=== PATIENT | female | born 1985 | race Caucasian/White ===

== ENCOUNTER → 2016-10-21 | Outpatient (CLI) | payer BC ==
[~2016-10-21] MED LIST: BCPILLS PO; PREN-83; SULF800T23 PO
[2016-10-29 03:24] LABS: CHLAMYDIA TRACH RNA*** NOT DETECTED (NOT DETECTED); GC (NEIS GONORRHOEAE)RNA** NOT DETECTED (NOT DETECTED)
== END | disposition home or self-care (01) ==
LOC: C.LABSPEC 15:18
PROVIDERS: ATTEND Obstetrics & Gynecology
DX: Z34.81 Encounter for supervision of other normal pregnancy, first trimester (principal)

== ENCOUNTER → 2017-01-12 | Outpatient (CLI) | payer BC, OTHER ==
[2017-01-12 10:33] LABS: BASO % 0.3 %; BASO ABS # 0.02 K/uL (0-0.2); COMPLETE YES; EOS % 0.9 %; HEMATOCRIT 36.3 % (37-47); IG% 0.4 %; LYMPH % 31.1 %; MEAN CELL VOLUME 86.6 fL (80-100); MEAN CORPUSCULAR HEMOGLOBIN 29.4 pg (25-34); MEAN CORPUSCULAR HGB CONC 33.9 g/dl (32-36); MEAN PLATELET VOLUME 10.1 fL (7.4-10.4); MONO % 3.2 %; NEUT % 64.1 %; PLATELET COUNT 216 K/uL (130-400); RED BLOOD COUNT 4.19 M/uL (4.2-5.4); WHITE BLOOD COUNT 7.72 K/uL (4.8-10.8)
[2017-01-12 15:21] LABS: GTGD 50 Grams
[2017-01-14 13:20] LABS: AFP CONCENTRATION 50.9 NG/ML; AFP MULTIPLE OF MEDIAN 1.37; AFPTS GESTATIONAL AGE 18.4 WEEKS; AFPTS INSULIN DEP DIABETIC? NO; AFPTS MATERNAL WT 203 LBS; ALPHA-FETOPROTEIN RACE CAUCASIAN=W; EDD DETERMINED BY ULTRASOUND; ESTRIOL MULTIPLE OF MEDIAN 0.79; HISTORY OF NTD NO; INHIBIN A 108 PG/ML; INHIBIN A MOM 0.74; REPEAT SAMPLE? NO
== END | disposition home or self-care (01) ==
LOC: C.LAB 08:58
PROVIDERS: ATTEND Obstetrics & Gynecology
DX: Z34.81 Encounter for supervision of other normal pregnancy, first trimester (principal)

== ENCOUNTER → 2017-05-12 | Outpatient (CLI) | payer BC, OTHER | END | disposition home or self-care (01) | LOC: C.LABSPEC 14:33 | PROVIDERS: ATTEND Obstetrics & Gynecology | DX: Z34.83 Encounter for supervision of other normal pregnancy, third trimester (principal) ==

== ENCOUNTER 2017-06-11 21:43 | Inpatient (IN) | payer BC ==
[~2017-06-11] VITALS: Ht 160 cm; Wt 97.7 kg
[~2017-06-11 21:43] MED LIST changes: -PREN-83
[2017-06-11] MEDS ORDERED: LACTATED RINGER'S 1000ML 1,000 ML IV PRN (22:22)
[2017-06-11] MEDS ORDERED: LACTATED RINGER'S 1000ML 1,000 ML IV SCH (22:22)
[2017-06-11] MEDS ORDERED: FENTANYL CITRATE INJ 50 MCG/1 ML 2 ML VIAL ONE (22:34)
[2017-06-11] MEDS ORDERED: BUPIVACAINE 0.25% 30 ML VIAL ONE (22:34)
[2017-06-11] MEDS ORDERED: EpHEDrine SULFATE INJ 50 MG/ML AMP ONE (22:34)
[2017-06-11] MEDS ORDERED: FENTANYL 2MCG/ML ROPIV 1.25MG/ML 100ML BAG EPI ONE (22:34)
[2017-06-11 22:56] VITALS: Ht 160 cm; Wt 97.7 kg
[2017-06-11] MEDS ORDERED: PREN-83 (22:56)
[2017-06-11 23:06] LABS: HEMATOCRIT 33.9 % (37-47); MEAN CELL VOLUME 84.3 fL (80-100); MEAN CORPUSCULAR HEMOGLOBIN 29.4 pg (25-34); MEAN CORPUSCULAR HGB CONC 34.8 g/dl (32-36); MEAN PLATELET VOLUME 10.7 fL (7.4-10.4); PLATELET COUNT 184 K/uL (130-400); RED BLOOD COUNT 4.02 M/uL (4.2-5.4); WHITE BLOOD COUNT 12.69 K/uL (4.8-10.8)
[2017-06-11] MEDS ORDERED: LACTATED RINGER'S 1000ML 500 ML IV PRN (23:26)
[2017-06-11] MEDS ORDERED: NALOXONE HCL INJ 0.4 MG/1 ML VIAL/CARP IV PRN (23:30)
[2017-06-11] MEDS ORDERED: FENTANYL 2MCG/ML ROPIV 1.25MG/ML 100ML BAG EPI PRN (23:30)
[2017-06-11] MEDS ORDERED: EpHEDrine SULFATE INJ 50 MG/ML AMP IV PRN (23:30)
[2017-06-11] MEDS ORDERED: MoRPHine SULFATE PF 1 MG/ML 10 ML AMP/VIAL ONE (23:57)
[2017-06-12] VITALS (18 sets, daily range): BP systolic 108–131; BP diastolic 61–83; PULSE 74–93; TEMP 36.7–37.2; O2SAT 96–100
[2017-06-12] MEDS ORDERED: CITRIC ACID/SODIUM CITRATE 15 ML UDC PO ONE
[2017-06-12] MEDS ORDERED: CEFOXITIN IV 2,000 MG in DEXTROSE 5% 50ML 50 ML IV STA ×2
[2017-06-12] MEDS ORDERED: LIDOCAINE/EPINEPHRINE 2% 1:200,000 20 ML SDV ONE (00:01)
[2017-06-12] MEDS ORDERED: OXYTOCIN INJ 10 UNITS/ML VIAL ONE ×2 (00:01→00:43)
[2017-06-12] MEDS ORDERED: METHYLERGONOVINE MALEATE 0.2 MG/ML AMP ONE (00:02)
[2017-06-12] MEDS ORDERED: PHENYLEPHRINE 100MCG/ML 5ML SYR ONE (00:43)
[2017-06-12] MEDS ORDERED: EpHEDrine SULFATE 50MG/5ML SYR ONE (00:43)
[2017-06-12] MEDS ORDERED: ONDANSETRON INJ 2 MG/ML 2 ML VIAL ONE (00:43)
[2017-06-12] MEDS ORDERED: LIDOCAINE HCL 2% 2 ML VIAL (20MG/ML) ONE (00:43)
[2017-06-12] MEDS ORDERED: PROPOFOL IV EMULSION 10 MG/ML 20 ML VIAL IV ONE (00:43)
[2017-06-12] MEDS ORDERED: METOCLOPRAMIDE HCL INJ 5 MG/ML 2 ML VIAL ONE (00:43)
[2017-06-12] MEDS ORDERED: SENNA 8.6 MG TAB PO PRN (01:30)
[2017-06-12] MEDS ORDERED: LANOLIN OINT EXT PRN ×2 (01:30)
[2017-06-12] MEDS ORDERED: MAGNESIUM HYDROXIDE SUSP 30 ML UDC PO PRN (01:30)
[2017-06-12] MEDS ORDERED: BENZOCAINE 20% AER SPR 82.5 GM CAN EXT PRN (01:30)
[2017-06-12] MEDS ORDERED: HYDROCORTISONE ACETATE 25 MG SUPP PR PRN (01:30)
[2017-06-12] MEDS ORDERED: SUPERCREAM 0.870 % 15GM JAR EXT PRN (01:30)
[2017-06-12] MEDS ORDERED: LACTATED RINGER'S 1000ML 500 ML IV PRN (01:32)
[2017-06-12] MEDS ORDERED: NALOXONE HCL INJ 0.08 MG in SYRINGE 1.8 ML IV PRN (01:32)
[2017-06-12] MEDS ORDERED: SODIUM CHLORIDE 0.9% 1000ML 1,000 ML IV PRN (01:32)
[2017-06-12] MEDS ORDERED: NALOXONE HCL INJ 1 MG in SODIUM CHLORIDE 0.9% 1000ML 1,000 ML IV PRN ×4 (01:32)
[2017-06-12] MEDS ORDERED: MEPERIDINE HCL 25 MG/ML CARP IV PRN ×2 (01:45)
[2017-06-12] MEDS ORDERED: KETOROLAC TROMETHAMINE 30 MG/ML VIAL IV. PRN ×2 (01:45→17:00)
[2017-06-12] MEDS ORDERED: EpHEDrine SULFATE INJ 50 MG/ML AMP IV PRN ×2 (01:45)
[2017-06-12] MEDS ORDERED: MoRPHine SULFATE PF 1 MG/ML 10 ML AMP/VIAL EPI PRN (01:45)
[2017-06-12] MEDS ORDERED: NO NARCOTICS OR SEDATIVES SCH (01:45)
[2017-06-12] MEDS ORDERED: PHENYLEPHRINE 100MCG/ML 5ML SYR IV PRN (01:45)
[2017-06-12] MEDS ORDERED: ATROPINE SULFATE 0.1 MG/ML 5ML SYR IV PRN (01:45)
[2017-06-12] MEDS ORDERED: PROMETHAZINE HCL INJ 12.5 MG in SODIUM CHLORIDE 0.9% 50ML 50 ML IV PRN ×4 (01:45)
[2017-06-12] MEDS ORDERED: NALBUPHINE HCL INJ 10 MG/ML AMP IV PRN (01:45)
[2017-06-12] MEDS ORDERED: ONDANSETRON INJ 2 MG/ML 2 ML VIAL IV PRN ×3 (01:45→17:00)
[2017-06-12] MEDS ORDERED: NALOXONE HCL 0.4 MG/1 ML VIAL/CARP IV PRN (01:45)
[2017-06-12] MEDS: OXYTOCIN INJ 20 UNITS in LACTATED RINGER'S 1000ML 1,000 ML IV SCH ×3 (03:03→19:37)
[2017-06-12] MEDS: KETOROLAC TROMETHAMINE 30 MG/ML VIAL IV. PRN ×2 (03:57→11:24)
--- NOTE | 2017-06-12 04:10 | Anesthesiology Progress Note ---
Anesthesia Post Op Note Date & Time Jun 12, 2017 at 04:10 Notes Mental Status: alert / awake / arousable, participated in evaluation Pt Amnestic to Procedure: Yes Nausea / Vomiting: adequately controlled Pain: adequately controlled Airway Patency, RR, SpO2: stable & adequate BP & HR: stable & adequate Hydration State: stable & adequate Anesthetic Complications: no major complications apparent
--- NOTE | 2017-06-12 04:10 | HISTORY & PHYSICAL EXAMINATION ---
DATE OF ADMISSION: 06/11/2017 CHIEF COMPLAINT: Intrauterine at term, non-reassuring heart rate tracing. HISTORY OF PRESENT ILLNESS: The patient is a 31-year-old 2, para 1, due date is 06/12/2017. She has had an uneventful course. Her first resulted in a live male , vaginal delivery. She was admitted in active labor about 4 cm dilated, 100% effaced. Soon after admission, she received epidural anesthesia from which she obtained good pain relief. Then she began to have a non-reassuring heart rate tracing. She had recurrent type 2 decelerations, after contraction and at the time she was having these contractions, she was about 5 cm with the head at -1 station. She had these recurrent type 2 decelerations despite having no stimulation of her contractions and having mask oxygen. Emergency was called. PAST MEDICAL HISTORY: She has a boy in good health. ALLERGIES: No known drug allergies. PAST SURGICAL HISTORY: [place] teeth removed. SOCIAL HISTORY: No smoking. No alcohol intake. 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 FAMILY HISTORY: Mom is 51 in good health. Father 55 in good health, 1 brother and 2 sisters in good health. REVIEW OF SYSTEMS: HEAD: No symptoms of frequent or severe headaches. EYES: No symptoms of blurred vision, double vision. EARS: No symptoms of frequent ear infection, difficulty hearing. NOSE: No symptoms of frequent nosebleeds, difficulty breathing through her nose. THROAT: No symptoms of frequent or severe sore throat, difficulty swallowing. RESPIRATORY: No history of asthma, chest pain, shortness of breath. PHYSICAL EXAMINATION: GENERAL: A well-developed, well-nourished, 31-year-old white female, alert, oriented x3, in no acute distress. HEART: Regular rhythm. S1 and S2 are normal. LUNGS: Clear to auscultation and percussion. ABDOMEN: Soft and contractions were palpable about every 2-3 minutes. They were of good intensity and good duration. PELVIC: Reveals cervix to be 98% effaced, head to be -1 station, about 5 cm dilated. MUSCULOSKELETAL: Revealed no calf tenderness. IMPRESSIONS OF THIS CASE: Intrauterine at term, and non-reassuring heart rate tracing with recurrent type 2 decelerations. Thank you very much. FRED
--- NOTE | 2017-06-12 05:28 | OPERATIVE REPORT ---
DATE OF OPERATION: 06/12/2017 PROCEDURE: Primary low segment section. INDICATIONS FOR SURGERY: Recurrent type 2 decelerations, non-reassuring heart rate tracing. PREOPERATIVE DIAGNOSIS: Non-reassuring heart rate tracing. POSTOPERATIVE DIAGNOSIS: Same, occiput posterior position. SURGEON: Dr. Byers. ORGANIZATIONAL DEVELOPMENT SPECIALIST: Dr. Santos. ESTIMATED BLOOD LOSS: 700 mL ANESTHESIA: Epidural. OPERATIVE FINDINGS AND PROCEDURE: The patient was brought to the OR table, correctly identified by armband and conversation. Epidural anesthesia was topped off. She was given mask oxygen. Lower abdomen was painted with an alcohol based sterilizing solution, draped in usual sterile fashion. Pfannenstiel incision was made, and carried down to the anterior fascia by a sharp dissection. Hemostasis was secured by electrocauterization. Fascia was incised transversely from the underlying muscle by blunt and sharp dissection. Recti muscles were in the midline, exposing the peritoneum which was carefully raised and entered. Incision was made above the vesicouterine fold. Bladder was undermined bluntly and pushed out of the operative field. Lower uterine segment was scored over the infant's head then entered with the scissors. Incision was then extended laterally with 2 fingers. At this time, there was virtually no amniotic fluid noted. A Vectis retractor was applied to the head and with fundal pressure, the infant was delivered. Cord was clamped and cut. A piece of cord was sent for cord gases. Cord blood was taken and the was attended to by the tongue and groove machine feeder who was scrubbed and present at the time of delivery. Following this, the placenta was removed manually. Uterus was cleansed with a clean sponge. Uterus, tubes, and ovaries were brought out through the incision. The myometrium was approximated with continuous interlocking suture of heavy duty chromic. The fascia was approximated over this with a continuous interlocking suture of heavy Vicryl placed in a horizontal fashion and then several interrupted [id number] sutures of Vicryl was used to complete the approximation and finish the hemostasis. Following this, hemostasis was good. The peritoneal edges were restored with a running 3-0 chromic. The pelvis was cleansed of all blood clots and debris. Uterus, tubes, and ovaries were reinserted into the abdomen. Careful anatomical approximation was now performed of the anterior abdominal wall. The peritoneum was closed with a continuous chromic gut suture. Recti muscles were approximated with interrupted [id number] suture of chromic catgut. The fascia was closed with continuous interlocking suture of Vicryl on each side, tied in the midline. Subcu was approximated with continuous plain and skin edges were approximated with staple clips. I attest to the content of the Intraoperative Record and any orders documented therein. Any exception s are noted below.
[2017-06-12] MEDS: DiphenhydrAMINE HCL 50 MG/ML VIAL IV PRN ×2 (05:51→14:59)
[2017-06-12] MEDS ORDERED: CEFOXITIN IV 2,000 MG in DEXTROSE 5% 50ML 50 ML IV SCH (06:00)
[2017-06-12] MEDS: PRENATAL VITAMIN TAB PO SCH (08:49)
[2017-06-12] MEDS: DOCUSATE SODIUM 100 MG CAP PO SCH ×2 (08:49→19:37)
[2017-06-12] MEDS: SIMETHICONE 80 MG CHEW PO SCH ×4 (08:49→19:37)
[2017-06-12] MEDS: FERROUS SULFATE 325 MG TAB PO SCH (08:49)
[2017-06-12] MEDS ORDERED: DC INTRASPINAL MORPHINE ONE (17:00)
[2017-06-12] MEDS ORDERED: MEPERIDINE HCL 50 MG/ML CARP IV PRN ×2 (17:00)
[2017-06-12] MEDS ORDERED: DiphenhydrAMINE HCL 50 MG/ML VIAL IV PRN (17:00)
[2017-06-12] MEDS ORDERED: OXYCODONE/ACETAMINOPHEN 5-325 TAB PO PRN (17:00)
[2017-06-12] MEDS ORDERED: ZOLPIDEM TARTRATE 5 MG TAB PO PRN (17:00)
[2017-06-12] MEDS: IBUPROFEN 600 MG TAB PO PRN (19:38)
[2017-06-12] MEDS: OXYCODONE/ACETAMINOPHEN 5-325 TAB PO PRN (19:39)
[2017-06-12] MEDS ORDERED: BISACODYL 5 MG TABEC PO ONE (22:00)
[2017-06-13] MEDS: OXYCODONE/ACETAMINOPHEN 5-325 TAB PO PRN ×5 (00:58→20:01)
[2017-06-13] MEDS: IBUPROFEN 600 MG TAB PO PRN ×5 (00:58→20:01)
[2017-06-13] MEDS ORDERED: BISACODYL 10 MG SUPP PR PRN (01:30)
[2017-06-13 07:29] LABS: BASO % 0.2 %; BASO ABS # 0.02 K/uL (0-0.2); COMPLETE YES; EOS % 1.2 %; HEMATOCRIT 31.7 % (37-47); IG% 0.3 %; LYMPH ABS # 1.91 K/uL (1.2-3.4); MEAN CELL VOLUME 87.1 fL (80-100); MEAN CORPUSCULAR HEMOGLOBIN 29.7 pg (25-34); MEAN CORPUSCULAR HGB CONC 34.1 g/dl (32-36); MEAN PLATELET VOLUME 10.9 fL (7.4-10.4); MONO % 5.1 %; NEUT % 77.2 %; PLATELET COUNT 163 K/uL (130-400); RED BLOOD COUNT 3.64 M/uL (4.2-5.4); WHITE BLOOD COUNT 11.92 K/uL (4.8-10.8)
[2017-06-13] MEDS: PRENATAL VITAMIN TAB PO SCH (08:39)
[2017-06-13] MEDS: SIMETHICONE 80 MG CHEW PO SCH ×4 (08:39→20:00)
[2017-06-13] MEDS: DOCUSATE SODIUM 100 MG CAP PO SCH ×2 (08:39→20:00)
[2017-06-13] MEDS: FERROUS SULFATE 325 MG TAB PO SCH (08:40)
[2017-06-13 08:45] VITALS: BP 132/78; PULSE 92; TEMP 36.7
[2017-06-13] MEDS ORDERED: DIPHTHERIA/TETANUS/PERTUSSIS 0.5 ML SYR/VIAL IM. ONE (09:00)
--- NOTE | 2017-06-13 13:25 | Progress Note ---
Subjective Jun 13, 2017. Subjective conversation w/ patient Ambulation: ambulating normally Voiding: no voiding problems Passing Gas: Yes Diet Tolerance: Regular Diet Lochia: Small Review of Systems Constitutional: + fever Objective Vital Signs Date Time Temp Pulse Resp B/P (MAP) Pulse Ox O2 Delivery O2 Flow Rate FiO2 06/13/17 08:45 36.7 92 16 132/78 (96) 06/12/17 23:15 Room Air 06/12/17 23:15 36.7 74 18 108/76 (87) 97 Room Air 06/12/17 20:10 37.2 92 18 123/78 (93) 96 Room Air 06/12/17 17:00 20 97 06/12/17 16:40 97 Room Air 06/12/17 16:00 18 97 06/12/17 16:00 36.8 77 16 110/73 (85) 100 Room Air 06/12/17 15:00 18 97 06/12/17 14:00 16 97 Physical Exam General Appearance: WELL-APPEARING Abdomen: normal bowel sounds, non tender Fundus: Firm, Non-Tender Incision Description: Clean, Dry & Intact Extremities: no pedal edema, no calf tenderness Laboratory Results Last 24 Hours Test 06/13/17 06:50 White Blood Count 11.92 K/uL Red Blood Count 3.64 M/uL Hemoglobin 10.8 g/dL Hematocrit 31.7 % Mean Corpuscular Volume 87.1 fL Mean Corpuscular Hemoglobin 29.7 pg Mean Corpuscular Hemoglobin Concent 34.1 g/dl Platelet Count 163 K/uL Mean Platelet Volume 10.9 fL Neutrophils (%) (Auto) 77.2 % Lymphocytes (%) (Auto) 16.0 % Monocytes (%) (Auto) 5.1 % Eosinophils (%) (Auto) 1.2 % Basophils (%) (Auto) 0.2 % Neutrophils # (Auto) 9.20 K/uL Lymphocytes # (Auto) 1.91 K/uL Monocytes # (Auto) 0.61 K/uL Eosinophils # (Auto) 0.14 K/uL Basophils # (Auto) 0.02 K/uL RDW Standard Deviation 44.3 fL RDW Coefficient of Variation 14.0 % Immature Granulocyte % (Auto) 0.3 % Immature Granulocyte # (Auto) 0.04 K/uL Assessment and Plan Post-Op Day#: 1 Continue Routine Care: incision clean and dry
[2017-06-13 16:49] VITALS: BP 136/85; PULSE 77; TEMP 36.7
[2017-06-14] VITALS: BP 120/78; PULSE 84; TEMP 36.7
[2017-06-14] MEDS: IBUPROFEN 600 MG TAB PO PRN ×5 (05:18→23:45)
[2017-06-14 08:45] VITALS: BP 131/83; PULSE 73; TEMP 36.5
[2017-06-14] MEDS: SIMETHICONE 80 MG CHEW PO SCH ×4 (08:58→19:30)
[2017-06-14] MEDS: FERROUS SULFATE 325 MG TAB PO SCH (08:59)
[2017-06-14] MEDS: PRENATAL VITAMIN TAB PO SCH (08:59)
[2017-06-14] MEDS: DOCUSATE SODIUM 100 MG CAP PO SCH ×2 (08:59→19:30)
--- NOTE | 2017-06-14 09:07 | Progress Note ---
Subjective Jun 14, 2017. Subjective conversation w/ patient Ambulation: ambulating normally Voiding: no voiding problems Passing Gas: Yes Diet Tolerance: Regular Diet Lochia: Small Feeding Type: Breast Feeding Review of Systems Constitutional: + fever Objective Vital Signs Date Time Temp Pulse Resp B/P (MAP) Pulse Ox O2 Delivery O2 Flow Rate FiO2 06/14/17 00:00 36.7 84 18 120/78 (92) Room Air 06/14/17 00:00 Room Air 06/13/17 16:49 36.7 77 20 136/85 (102) Physical Exam General Appearance: WELL-APPEARING Respiratory/Chest: lungs clear Abdomen: non tender Fundus: Firm, Non-Tender Extremities: no pedal edema, no calf tenderness Assessment and Plan Post-Op Day#: 2
[2017-06-14] MEDS: OXYCODONE/ACETAMINOPHEN 5-325 TAB PO PRN ×4 (11:58→23:45)
[2017-06-14 15:15] VITALS: BP 129/82; PULSE 72; TEMP 36.8; O2SAT 98
[2017-06-14 23:35] VITALS: BP 113/72; PULSE 69; TEMP 36.6; O2SAT 98
[2017-06-15] MEDS: IBUPROFEN 600 MG TAB PO PRN ×2 (04:14→08:15)
[2017-06-15] MEDS: OXYCODONE/ACETAMINOPHEN 5-325 TAB PO PRN ×2 (04:14→08:15)
[2017-06-15 07:30] VITALS: BP 123/71; PULSE 82; TEMP 36.6; O2SAT 98
[2017-06-15] MEDS: FERROUS SULFATE 325 MG TAB PO SCH (08:14)
[2017-06-15] MEDS: DOCUSATE SODIUM 100 MG CAP PO SCH (08:14)
[2017-06-15] MEDS: PRENATAL VITAMIN TAB PO SCH (08:14)
[2017-06-15] MEDS: SIMETHICONE 80 MG CHEW PO SCH (08:14)
--- NOTE | 2017-06-15 09:11 | Progress Note ---
Subjective Jun 15, 2017. Subjective conversation w/ patient Ambulation: ambulating normally Voiding: no voiding problems Passing Gas: Yes Diet Tolerance: Regular Diet Lochia: Small Feeding Type: Breast Feeding Review of Systems Constitutional: + fever Objective Vital Signs Date Time Temp Pulse Resp B/P (MAP) Pulse Ox O2 Delivery O2 Flow Rate FiO2 06/15/17 07:30 36.6 82 18 123/71 (88) 98 Room Air 06/15/17 07:30 Room Air 06/14/17 23:35 36.6 69 16 113/72 (86) 98 Room Air 06/14/17 23:35 Room Air 06/14/17 15:15 98 Room Air 06/14/17 15:15 36.8 72 16 129/82 (98) 98 Room Air Physical Exam General Appearance: WELL-APPEARING Abdomen: non tender Fundus: Firm, Non-Tender Incision Description: Clean, Dry & Intact Extremities: no pedal edema, no calf tenderness Assessment and Plan Post-Op Day#: 3
--- NOTE | 2017-06-15 09:13 | Discharge Instructions ---
Discharge Instructions Date of Service Jun 15, 2017. Admission Reason for Admission: Active Labor Discharge Discharge Diagnosis / Problem: cesareansection for non reassuring heart rate Discharge Goals Goal(s): Routine recovery after Activity Recommendations Activity Limitations: as noted below ACTIVITY RECOMMENDATIONS: * Gradual return to full activity over the next 2-3 weeks. * No lifting - nothing heavier than baby over the next 2-3 weeks. * Do not engage in vigorous exercise, sexual activity or sports for 6 weeks. * Do not drive or operate any motorized equipment for 14 days. * You may shower/bathe daily. DIET: Resume Previous Diet If Breast-feeding: * Increase caloric intake by 500 calories, eat 3 well balanced meals, 2 high protein snacks a day and drink 6-8 8oz. glasses of fluid per day. BREAST CARE: If you are not breast feeding: * Wear a supportive bra 24 hours a day for one to two weeks. * Avoid stimulating your breasts and nipples as much as possible during the first few weeks after delivery. * When taking a shower, have the warm water hit your back, not breasts. * When your breasts feel full, apply ice packs. Usually three to four times a day helps ease the discomfort. * Take a mild pain medication (Tylenol / Motrin) when you are uncomfortable. If breast feeding: * Use breast milk to lubricate nipples. Lansinoh cream may be used for sore nipples. You do not need to remove cream prior to breast feeding. If using a different brand of cream, check the label for directions regarding removal of cream prior to nursing. * Wear a supportive bra. * If having problems with breasts or breast feeding, call a help desk consultant or your health care provider. VITAMINS: * One tablet daily. Continue taking while or until you have your check up in 6 weeks. SPECIAL CARE INSTRUCTIONS: * Vaginal rest (no tampons, douching, intercourse) until after doctor's visit. * control as discussed with doctor. * Verbalizes understanding of car seat law as reviewed with patient by nursing. * Car Seat hand-out given and reviewed with patient by nursing. * Shaken baby information reviewed with patient by nursing. Call you doctor if: * Heavy bleeding (saturating a pad an hour) or passing clots the size of your fist. Bleeding has a foul smelling odor. * A fever greater than 100.4 degrees F (38 degrees C) on two occasions four hours apart and/or chills. * Unusual pain in the pelvic or vaginal areas. Pain should improve each day . * Call the doctor for any increased redness, drainage or swelling around the incision and any pain unrelieved by prescribed pain medication. * Signs and symptoms of phlebitis(possible blood clots forming in the veins): leg pain, warm, red or swollen area on leg. * "Baby Blues" lasting longer than two weeks. If you have any questions or concerns, call your health care practitioner at [phone]. FOLLOW-UP VISIT: Follow-up visit for examination in 6 weeks. Incision check (staple removal) in 1 week. Please call office at [phone] if not already scheduled. . Instructions / Follow-Up Instructions / Follow-Up ACTIVITY RECOMMENDATIONS: * Gradual return to full activity over the next 2-3 weeks. * No lifting - nothing heavier than baby over the next 2-3 weeks. * Do not engage in vigorous exercise, sexual activity or sports for 6 weeks. * Do not drive or operate any motorized equipment for 14 days. * You may shower/bathe daily. DIET: Resume Previous Diet If Breast-feeding: * Increase caloric intake by 500 calories, eat 3 well balanced meals, 2 high protein snacks a day and drink 6-8 8oz. glasses of fluid per day. BREAST CARE: If you are not breast feeding: * Wear a supportive bra 24 hours a day for one to two weeks. * Avoid stimulating your breasts and nipples as much as possible during the first few weeks after delivery. * When taking a shower, have the warm water hit your back, not breasts. * When your breasts feel full, apply ice packs. Usually three to four times a day helps ease the discomfort. * Take a mild pain medication (Tylenol / Motrin) when you are uncomfortable. If breast feeding: * Use breast milk to lubricate nipples. Lansinoh cream may be used for sore nipples. You do not need to remove cream prior to breast feeding. If using a different brand of cream, check the label for directions regarding removal of cream prior to nursing. * Wear a supportive bra. * If having problems with breasts or breast feeding, call a help desk consultant or your health care provider. VITAMINS: * One tablet daily. Continue taking while or until you have your check up in 6 weeks. SPECIAL CARE INSTRUCTIONS: * Vaginal rest (no tampons, douching, intercourse) until after doctor's visit. * control as discussed with doctor. * Verbalizes understanding of car seat law as reviewed with patient by nursing. * Car Seat hand-out given and reviewed with patient by nursing. * Shaken baby information reviewed with patient by nursing. Call you doctor if: * Heavy bleeding (saturating a pad an hour) or passing clots the size of your fist. Bleeding has a foul smelling odor. * A fever greater than 100.4 degrees F (38 degrees C) on two occasions four hours apart and/or chills. * Unusual pain in the pelvic or vaginal areas. Pain should improve each day . * Call the doctor for any increased redness, drainage or swelling around the incision and any pain unrelieved by prescribed pain medication. * Signs and symptoms of phlebitis(possible blood clots forming in the veins): leg pain, warm, red or swollen area on leg. * "Baby Blues" lasting longer than two weeks. If you have any questions or concerns, call your health care practitioner at [phone]. FOLLOW-UP VISIT: Follow-up visit for examination in 6 weeks. Incision check (staple removal) in 1 week. Please call office at [phone] if not already scheduled. Current Hospital Diet Patient's current hospital diet: Regular OB Diet Discharge Diet Recommended Diet: Regular Diet Procedures Procedures Performed: Primary caesarean section Live male child at 0031 Pending Studies Studies pending at discharge: no Medical Emergencies . Who to Call and When: Medical Emergencies: If at any time you feel your situation is an emergency, please call 911 immediately. . Non-Emergent Contact Non-Emergency issues call your: Embedded Systems Engineer Call Non-Emergent contact if: temperature is above 100.5 . . "Provider Documentation" section prepared by Carlos Byers. . VTE Core Measure Inpt VTE Proph given/why not?: Treatment not indicated
--- NOTE | 2017-06-15 09:25 | DISCHARGE SUMMARY ---
Mrs. Stallworth was admitted to the hospital in active labor after she got to be about 5 cm dilated. She requested and received epidural anesthesia. Initially, she did well. Then we began to have trouble with heart rate tracing and she had some prolonged decelerations followed by recurrent decelerations after each and every contraction and this was despite the fact that labor was not stimulated and she was receiving mask oxygen. We subsequently scheduled her for a stat for nonreassuring heart rate tracing. Right before brought her in to the OR, which we had to use the main OR, heart rate did improve; however, this was because the contractions had spaced out from her every 2-3 minutes for about every 10. She was taken to the OR and underwent a primary low segment section, did well. Blood loss was minimal. Her preoperative hemoglobin was 11.8, hematocrit 33.9. Postoperatively hemoglobin was 10.8, hematocrit 31.7. Postoperatively, she did well. Bowel sounds returned within 24 hours. She remained afebrile. On the third postoperative day, she was ambulating well, eating well. The patient requested discharge. Pain was well controlled with a combination of Percocet and Motrin. The patient was given the usual instructions to call the office if she had a temperature over 100, call if she had any heavy bleeding and to return in a week for removal of hu.
[2017-06-15 10:30] VITALS: BP_DIAS 71; PULSE 82; TEMP 36.6
== END 2017-06-15 10:34 | disposition home or self-care (01) | DRG 766 ==
LOC: C.OPB 21:43 → C.LD 21:45 → C.OPB 22:26 → C.OBG 06-12 03:48 → EDSTATUS 06-12 21:43
PROVIDERS: ADMIT Obstetrics & Gynecology; ATTEND Obstetrics & Gynecology
PROC: 10D00Z1 Extraction of Products of Conception, Low, Open Approach (ICD-10-PCS; principal; 2017-06-12 00:06)
PROC: 10E0XZZ Delivery of Products of Conception, External Approach (ICD-10-PCS; principal; 2017-06-12 00:06)
DX: O76 Abnormality in fetal heart rate and rhythm complicating labor and delivery (principal); Z37.0 Single live birth

== ENCOUNTER → 2017-07-23 | Outpatient (CLI) | payer BC ==
[~2017-07-23] MED LIST changes: -BCPILLS PO; +PREN-83; -SULF800T23 PO
== END | disposition home or self-care (01) ==
LOC: C.PAPS 16:01
PROVIDERS: ATTEND Obstetrics & Gynecology
DX: Z39.2 Encounter for routine postpartum follow-up (principal)

== ENCOUNTER 2019-02-02 05:40 | Inpatient (IN) ==
--- NOTE | 2019-01-28 11:56 | Anesthesiology Consultation ---
Date of Service January 28, 2019 Assessment & Plan (1) Encounter for pre-operative examination: Chart Review Chart Review: Acceptable Risk for Surgery (pending labs) and Patient seen in Pre Admission Testing Teaching & Discussion Pre-Anesthesia Teaching/Discussion Notes: Instructed NPO after midnight before surgery,except medications with 15 cc of water. Medication instructions provided according to the PAT guidelines. History Surgery Operation Date: 02/02/19 07:30 Proposed Procedures p Section in - Carlos Byers MD Height/Weight Height: 5 ft 2 in Weight: 100.6 kg Allergies Allergy/AdvReac Type Severity Reaction Status Date / Time nickel Allergy Intermediate HIVES Verified 01/27/19 14:07 Medications Home Medications Medication Instructions Recorded Confirmed Last Taken PNV cmb#95-ferrous fumarate-FA 1 tab PO HS 01/27/19 01/27/19 Unknown [] Past Medical History Medical History Acid reflux WITH Asthma "SPORTS INDUCED"- NO ISSUES SINCE CHILDHOOD Depression Obesity Exercise / Class Metabolic Activity III < 4 Walking/Shop/Light housework Past Family History Family History Father Family history of diabetes mellitus Past Surgical History Surgical History History of epidural anesthesia 06/11/17: labor CSE at L3-L4 x 1 attempt at [facility] History of wisdom tooth extraction History of section X 1 Past Anesthesia History No Hx of Anesthesia Complications and No Family Hx of Anesthesia Complications History of PONV No Hx of PONV and Hx of Motion Sickness (OCCASIONAL) Social History Smoking Status: Former smoker tobacco type: cigarettes Do You Dip or Chew Tobacco: No Smoking End Date: QUIT DURING ; PRIOR 10+ YEAR USE Hx Alcohol Use: No Hx Substance Use: No substance use type: does not use Review of Systems URI symptoms significantly improved s/p Augmentin. Patient denies chest pain, shortness of breath, wheezing, palpitations. Physical Exam Vital Signs VITALS BP 114/74 P 104 TEMP 98.5 SP02 95%RA RESP 18 PHYSICAL Full neck and c-spine range of motion. Full TMJ range of motion. TMD 3.5 finger breaths Mallampati Score 1 Dentition: intact Lungs: clear throughout to auscultation Cardiac: regular rate and rhythm, no murmurs noted Spine: normal Carotid arteries: negative bruit Extremities: no edema
[2019-01-28 14:11] LABS: Basophils # (auto) 0.01 K/uL (0-0.2); Basophils % (auto) 0.1 %; Eosinophils # (auto) 0.03 K/uL (0-0.5); Eosinophils % (auto) 0.3 %; Hematocrit (blood only) 33.7 % (37-47); Immature Granulocytes # (auto) 0.04 K/uL (0.00-0.02); Immature Granulocytes % (auto) 0.4 %; Lymphocytes # (auto) 1.92 K/uL (1.2-3.4); Lymphocytes % (auto) 18.4 %; Mean Corpuscular Hgb Conc 35.6 g/dL (32-36); Mean Platelet Volume 11.6 fL (7.4-10.4); Monocytes # (auto) 0.36 K/uL (0.11-0.59); Monocytes % (auto) 3.4 %; Neutrophils % (auto) 77.4 %; Platelet Count 188 K/uL (130-400); RDW Coefficient of Variation 13.7 % (11.5-14.5); RDW Standard Deviation 41.6 fL (36.4-46.3); Red Blood Count 4.01 M/uL (4.2-5.4); White Blood Count 10.46 K/uL (4.8-10.8)
[2019-01-28 14:34] LABS: INR 0.9 (0.9-1.1); Prothrombin Time 9.4 Seconds (9.0-12.0)
[2019-01-28 14:38] LABS: BUN Creatinine Ratio 12.3 (10-20); Calcium 8.9 mg/dl (8.5-10.1); Est GFR (African American) 135.8; Est GFR (Non-African American) 117.1; Potassium 3.6 mmol/L (3.5-5.1)
--- NOTE | 2019-01-31 19:27 | History and Physical Report ---
DATE OF ADMISSION: 01/20/2019 CHIEF COMPLAINT: Intrauterine at term, desire for permanent sterilization, prior . HISTORY OF PRESENT ILLNESS: The patient is a 33-year-old 3, para 2, good general health, uneventful course. Last menstrual period was 05/01/2018, given her due date of 02/05/2019. She had a previous vaginal delivery and then a previous . She presently requests repeat section and she also desires a bilateral tubal ligation. She has been informed the procedure of tubal ligation including the fact that this procedure is intended to result in permanent and irreversible sterility, but occasionally these procedures can fail and she can get despite having had her tubes tied, presently being scheduled for repeat and bilateral tubal ligation. PAST MEDICAL HISTORY: She has 2 boys in good health. ALLERGIES: No known drug allergies. PAST SURGICAL HISTORY: Her only surgery was a in 2017. MEDICAL HISTORY: No history of rheumatic fever, heart disease, heart murmur, diabetes, tuberculosis. SOCIAL HISTORY: No smoking. No alcohol intake. 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 FAMILY HISTORY: Mom is 53. Father 58, both in good health. Two sisters in good health. REVIEW OF SYSTEMS: HEAD: No symptoms of frequent or severe headaches. EYES: No symptoms of blurred vision, double vision. EARS: No symptoms of frequent ear infections, difficulty hearing. NOSE: No symptoms of frequent nosebleeds, difficulty breathing through her nose. THROAT: No symptoms of frequent or severe sore throats, difficulty swallowing. RESPIRATORY SYSTEM: No history of asthma, chest pain, shortness of breath. PHYSICAL EXAMINATION: GENERAL: Well-developed, well-nourished 33-year-old white female, alert, oriented x3 and cooperative in no acute distress, appears stated age. EYES: Conjunctivae are pink. Sclerae white, no evidence of jaundice. EARS: Had normal light reflex bilaterally. NOSE: Had normal mucosa. Septum is midline. There were no polyps. THROAT: No erythema or evidence of infection. Teeth are in good state of repair. HEAD: Was normocephalic, normal distribution of hair. NECK: Supple. Trachea midline. Thyroid is not enlarged. There is no adenopathy appreciated. Both carotids are of good intensity. CHEST: Clear to auscultation and percussion. No wheezes, rales or rhonchi appreciated. HEART: Regular rhythm. S1 and S2 are normal. BREASTS: Normal. ABDOMEN: Soft and nontender. Term size fetus, vertex presentation. Well-healed Pfannenstiel scar. PELVIC: Vertex floating, posterior cervix closed. MUSCULOSKELETAL: Examination revealed no calf tenderness. IMPRESSIONS OF THIS CASE: Desire for permanent sterilization, previous section and repeat section at term.
[2019-02-02] MEDS ORDERED: LACTATED RINGER'S 1,000 ML IV SCH ×3 (06:00→09:15)
[2019-02-02] MEDS ORDERED: CITRIC ACID/SODIUM CITRATE 15 ML UDC PO SCH (06:00)
[2019-02-02] MEDS ORDERED: cefOXitin 2,000 MG in DEXTROSE 5% 50 ML IV SCH (06:00)
[2019-02-02 06:09] LABS: Basophils # (auto) 0.02 K/uL (0-0.2); Basophils % (auto) 0.2 %; Eosinophils # (auto) 0.09 K/uL (0-0.5); Eosinophils % (auto) 0.9 %; Hematocrit (blood only) 34.5 % (37-47); Immature Granulocytes # (auto) 0.04 K/uL (0.00-0.02); Immature Granulocytes % (auto) 0.4 %; Lymphocytes # (auto) 2.44 K/uL (1.2-3.4); Lymphocytes % (auto) 24.6 %; Mean Corpuscular Volume 84.1 fL (80-100); Monocytes # (auto) 0.46 K/uL (0.11-0.59); Monocytes % (auto) 4.6 %; Neutrophils # (auto) 6.88 K/uL (1.4-6.5); Neutrophils % (auto) 69.3 %; Platelet Count 174 K/uL (130-400); RDW Coefficient of Variation 13.8 % (11.5-14.5); RDW Standard Deviation 42.2 fL (36.4-46.3); White Blood Count 9.93 K/uL (4.8-10.8)
[2019-02-02 06:14] LABS: Mean Corpuscular Hgb Conc 34.8 g/dL (32-36)
[2019-02-02] MEDS ORDERED: LIDOCAINE/EPINEPHRINE 1% 20 ML VIAL ONE (07:12)
[2019-02-02] MEDS ORDERED: fentaNYL citrate 100 MCG/2 ML VIAL ONE (07:16)
[2019-02-02] MEDS ORDERED: MoRPHine SULFATE PF 1 MG/ML 10 ML AMP/VIAL ONE (07:16)
[2019-02-02] MEDS ORDERED: OXYTOCIN 10 UNITS/ML VIAL ONE ×3 (07:43→08:59)
[2019-02-02] MEDS ORDERED: OXYTOCIN 10 UNITS/ML VIAL IM ONE (08:17)
[2019-02-02] MEDS ORDERED: PHENYLEPHRINE 100MCG/ML 5ML SYR ONE (08:27)
[2019-02-02] MEDS ORDERED: BENZOCAINE 20% AER SPR 82.5 GM CAN EXT PRN (09:13)
[2019-02-02] MEDS ORDERED: MAGNESIUM HYDROXIDE SUSP 30 ML UDC PO PRN (09:13)
[2019-02-02] MEDS ORDERED: DIPHTHERIA/TETANUS/PERTUSSIS 0.5 ML SYR/VIAL IM ONE (09:13)
[2019-02-02] MEDS ORDERED: SUPERCREAM 0.870% 15 GM JAR EXT PRN (09:13)
[2019-02-02] MEDS ORDERED: SENNA 8.6 MG TAB PO PRN (09:13)
[2019-02-02] MEDS ORDERED: HYDROCORTISONE ACETATE 25 MG SUPP PR PRN (09:13)
[2019-02-02] MEDS ORDERED: ONDANSETRON INJ 2 MG/ML 2 ML VIAL ONE (09:16)
[2019-02-02] MEDS ORDERED: DEXAMETHASONE SOD INJ 4 MG/ML VIAL ONE (09:16)
--- NOTE | 2019-02-02 09:22 | Post Operative Brief Note ---
Immediate Post Op Note v1 Date of Surgery February 02, 2019 Pre & Post Diagnosis Operation Date: 02/02/19 07:30 Pre-Op Diagnosis: Repeat with Bilateral Tubal Post-Op Diagnosis: Same as above. Procedure Operation Date: 02/02/19 07:30 Actual Procedures p Section in LD - Live Girl @ 8:13 - Carlos Byers MD bilateral tubal ligation Surgeon Carlos Byers MD Powder Line Repairer taina Estimated Blood Loss 600 Findings Consistent with Post-Op Diagnosis Fluids 2000 ml Drains Brown Catheter (Patent and draining clear yellow urine) Anesthesia Type Spinal Complications none Disposition Accompanied Patient To Recovery: No Disposition: Recovery Room Overlapping Procedure I was immediately available: during the entire case.
[2019-02-02] MEDS ORDERED: NALOXONE HCL 0.4 MG/1 ML VIAL/CARP IV PRN (09:23)
[2019-02-02] MEDS ORDERED: ePHEDrine sulfate 50 MG/ML AMP IV PRN (09:23)
[2019-02-02] MEDS ORDERED: NALBUPHINE HCL INJ 10 MG/ML AMP IV PRN (09:23)
[2019-02-02] MEDS ORDERED: LACTATED RINGER'S 500 ML IV PRN (09:23)
[2019-02-02] MEDS ORDERED: ONDANSETRON INJ 2 MG/ML 2 ML VIAL IV PRN (09:23)
[2019-02-02] MEDS ORDERED: DiphenhydrAMINE HCL 50 MG/ML VIAL IV PRN (09:23)
[2019-02-02] MEDS ORDERED: NALOXONE HCL 1 MG in SODIUM CHLORIDE 0.9% 1000ML 1,000 ML IV PRN (09:23)
[2019-02-02] MEDS ORDERED: PROMETHAZINE HCL 25 MG in SODIUM CHLORIDE 0.9% 50 ML IV PRN (09:23)
[2019-02-02] MEDS ORDERED: MoRPHine SULFATE PF 1 MG/ML 10 ML AMP/VIAL INT SPINAL ONE (09:23)
[2019-02-02] MEDS ORDERED: NALOXONE HCL 0.08 MG in SYRINGE 1.8 ML IV PRN (09:23)
[2019-02-02] MEDS ORDERED: SODIUM CHLORIDE 0.9% 1000ML 1,000 ML IV SCH (09:30)
[2019-02-02] MEDS ORDERED: DC INTRASPINAL MORPHINE SCH (09:30)
[2019-02-02] MEDS ORDERED: NO NARCOTICS OR SEDATIVES SCH (09:30)
--- NOTE | 2019-02-02 09:48 | Operative Report ---
DATE OF OPERATION: 02/02/2019 PROCEDURE: Repeat low segment section with a bilateral tubal ligation. INDICATIONS FOR SURGERY: Previous section, intrauterine , 39+ weeks gestation. PREOPERATIVE DIAGNOSES: Previous , term , desire for permanent sterilization. POSTOPERATIVE DIAGNOSES: Previous , term , desire for permanent sterilization, normal tubes and ovaries. SURGEON: Tatianna Byers MD PERINATAL INSTRUCTOR: Ramesh Santos MD ESTIMATED BLOOD LOSS: 600 mL. ANESTHESIA: Spinal. OPERATIVE FINDINGS AND PROCEDURE: The patient brought to the OR table, correctly identified by armband and conversation. Brown catheter was inserted aseptically in the bladder, connected to gravity drainage. Compression stockings were applied. Spinal anesthesia was administered. An adequate level was obtained, it was tested. The lower abdomen was painted with an alcohol based sterilizing solution, draped in the usual sterile fashion. After ensuring that we had adequate anesthesia level, a Pfannenstiel incision was made through a previous scar. Incision was carried down to the anterior fascia by sharp dissection. Hemostasis was secured by electrocauterization. Fascia was then incised transversely from undermining muscle by blunt and sharp dissection. Recti muscles were in midline exposing the peritoneum which was carefully raised and entered. Incision was made above the vesicouterine fold. Bladder was advanced. Lower uterine segment was scored with a knife and then entered with blunt scissors. Clear amniotic fluid was seen at this time. Vectis retractor was applied to the head, and with fundal pressure, the 's head was delivered. There was a nuchal cord which was reduced over the head. The was suctioned through the mouth and the nose. was then delivered. Cord was clamped and cut, and the infant was attended to by the specialist field engineer who was scrubbed and present at the time of delivery. Following this, cord blood was taken. The placenta was removed manually. Uterus, tubes, and ovaries were brought through the incision. Uterine cavity was wiped clean with a clean sponge. Myometrium was approximated in 2 layers. A deep layer of chromic was used to approximate the muscular layer and then a heavy Vicryl was used to approximate the fascial layer over the muscular approximation. Following this, there was some leakage from the incision and we used 3 interrupted [id number] sutures of heavy Vicryl to complete the hemostasis. With this, attention was turned to both fallopian tubes. Each fallopian tube was grasped in the middle and sutured proximally and distally and then infiltrated with local with epinephrine between the 2 sutures and then the tube was dissected out between the leaves of the broad ligament, cut and then the proximal portion of the tube was buried in the broad ligament and the distal portion was exteriorized. Following this, hemostasis was good. The pelvis was cleansed of all blood clots and debris. Uterus, tubes, and ovaries were reinserted into the abdomen. The incision was checked and found to be hemostatic. A careful anatomical approximation of the anterior abdominal wall was now performed. Peritoneum was closed in a mattress suture of chromic catgut. Recti muscles were approximated with interrupted [id number] suture of chromic catgut. The fascia was closed with continuous interlocking suture of Vicryl on each side, tied in the midline. SubQ was approximated with a running plain. The skin edges were approximated with staple clips. I attest to the content of the Intraoperative Record and any orders documented therein. Any exception s are noted below.
[2019-02-02] MEDS: KETOROLAC 30 MG/ML VIAL IV PRN (09:49)
--- NOTE | 2019-02-02 11:58 | Anesthesiology Progress Note ---
Date of Service February 02, 2019 Anesthesia Post Procedure Vital Signs Vital Signs: Temp Pulse Resp BP Pulse Ox 02/02/19 11:52 72 122/62 97 02/02/19 11:47 70 97 02/02/19 11:42 66 115/60 98 02/02/19 11:37 67 98 02/02/19 11:33 75 112/58 L 02/02/19 11:32 75 97 02/02/19 11:27 70 96 02/02/19 11:23 72 109/64 02/02/19 11:22 74 98 02/02/19 11:21 18 02/02/19 11:17 74 97 02/02/19 11:12 71 119/72 96 02/02/19 11:07 107 H 99 02/02/19 11:02 72 115/55 L 98 02/02/19 10:57 67 97 02/02/19 10:52 73 114/58 L 97 02/02/19 10:47 68 98 02/02/19 10:42 73 98/57 L 97 02/02/19 10:37 81 97 02/02/19 10:34 71 112/58 L 02/02/19 10:32 89 95 02/02/19 10:27 70 97 02/02/19 10:24 80 124/58 L 02/02/19 10:22 80 94 02/02/19 10:21 18 02/02/19 10:17 68 95 02/02/19 10:12 72 128/55 L 98 02/02/19 10:11 18 02/02/19 10:07 74 97 02/02/19 10:02 72 136/63 95 02/02/19 10:01 18 02/02/19 09:57 76 93 02/02/19 09:56 70 125/69 02/02/19 09:52 73 95 02/02/19 09:51 18 02/02/19 09:47 85 97 02/02/19 09:43 75 124/82 02/02/19 09:42 72 97 02/02/19 09:41 18 02/02/19 09:40 69 93 02/02/19 09:37 72 99 02/02/19 09:32 70 98 02/02/19 09:31 71 18 94 02/02/19 09:27 68 97 02/02/19 09:22 67 133/78 02/02/19 09:21 36.4 C L 18 02/02/19 05:56 37.0 C 18 02/02/19 05:48 95 H 137/82 Pain Intensity Lower Abdomen: Pain Intensity: 3 Transfer of Care Handoff Completed per policy Notes Mental Status: alert / awake / arousable Patient Amnestic to Procedure: Yes Nausea / Vomiting: adequately controlled Pain: adequately controlled Airway Patency, RR, SpO2: stable & adequate BP & HR: stable & adequate Hydration State: stable & adequate Neuraxial Anesthesia: was administered and sensory block is resolving Anesthetic Complications: no major complications apparent
[2019-02-02] MEDS: OXYTOCIN 20 UNITS in LACTATED RINGER'S 1,000 ML IV SCH ×2 (12:15→20:53)
[2019-02-02] MEDS: SIMETHICONE 80 MG CHEW PO SCH ×3 (13:03→20:12)
[2019-02-02] MEDS: DOCUSATE SODIUM 100 MG CAP PO SCH (20:12)
[2019-02-03] MEDS: KETOROLAC 30 MG/ML VIAL IV PRN (01:32)
[2019-02-03] MEDS ORDERED: MEPERIDINE HCL 50 MG/ML CARP IV PRN (03:25)
[2019-02-03] MEDS ORDERED: DiphenhydrAMINE HCL 50 MG/ML VIAL IV PRN (03:25)
[2019-02-03] MEDS ORDERED: PROMETHAZINE HCL 25 MG in SODIUM CHLORIDE 0.9% 50 ML IV PRN (03:25)
[2019-02-03] MEDS ORDERED: ZOLPIDEM TARTRATE 5 MG TAB PO PRN (03:25)
[2019-02-03] MEDS ORDERED: KETOROLAC 30 MG/ML VIAL IV PRN (03:25)
[2019-02-03] MEDS ORDERED: ONDANSETRON INJ 2 MG/ML 2 ML VIAL IV PRN (03:25)
[2019-02-03 07:14] LABS: Basophils # (auto) 0.02 K/uL (0-0.2); Basophils % (auto) 0.2 %; Eosinophils # (auto) 0.04 K/uL (0-0.5); Eosinophils % (auto) 0.3 %; Hematocrit (blood only) 27.7 % (37-47); Hemoglobin 9.8 g/dL (12.0-16.0); Immature Granulocytes # (auto) 0.05 K/uL (0.00-0.02); Immature Granulocytes % (auto) 0.4 %; Lymphocytes # (auto) 2.86 K/uL (1.2-3.4); Mean Corpuscular Hgb Conc 35.4 g/dL (32-36); Mean Corpuscular Volume 83.7 fL (80-100); Mean Platelet Volume 10.3 fL (7.4-10.4); Monocytes % (auto) 5.9 %; Neutrophils # (auto) 8.25 K/uL (1.4-6.5); Neutrophils % (auto) 69.2 %; Platelet Count 165 K/uL (130-400); RDW Coefficient of Variation 13.9 % (11.5-14.5); RDW Standard Deviation 42.1 fL (36.4-46.3); Red Blood Count 3.31 M/uL (4.2-5.4); White Blood Count 11.92 K/uL (4.8-10.8)
--- NOTE | 2019-02-03 07:22 | Anesthesiology Progress Note ---
Date of Service February 03, 2019 0715am- Pt seen;s/p c section w/SAB. Pt is w/o c/o H/A;No c/o LBP;No c/o LE weakness or paresthesias.Pt has been ambulating. Physical Exam Vital Signs: Last Vital Signs Temp 36.6 C 02/03/19 04:10 Pulse 88 02/03/19 04:10 Resp 18 02/03/19 04:10 BP 102/66 02/03/19 04:10 Pulse Ox 98 02/03/19 04:10 Results & Data Medications Administered Docusate Sodium (Colace) 100 mg PO BID [facility] Stop: 03/04/19 20:59 Last Admin: 02/02/19 20:12 Dose: 100 mg Documented by: [id number] Oxytocin 20 units/ Lactated (Ringer's) 1,002 mls @ 125 mls/hr IV .Q8H1M [facility] Stop: 03/04/19 09:59 Last Infusion: 02/03/19 04:10 Dose: 0 mls/hr Documented by: [id number] Cosigned by: [id number] Infusion: 02/02/19 22:30 Dose: 125 mls/hr Documented by: [id number] Cosigned by: [id number] Admin: 02/02/19 20:53 Dose: 125 mls/hr Documented by: [id number] Cosigned by: [id number] Infusion: 02/02/19 20:16 Dose: 125 mls/hr Documented by: [id number] Cosigned by: [id number] Admin: 02/02/19 12:15 Dose: 125 mls/hr Documented by: [id number] Cosigned by: [id number] Simethicone (Mylicon) 80 mg PO QID [facility] Stop: 03/04/19 12:59 Last Admin: 02/02/19 20:12 Dose: 80 mg Documented by: [id number] Admin: 02/02/19 17:46 Dose: 80 mg Documented by: [id number] Admin: 02/02/19 13:03 Dose: Not Given Documented by: [id number]
[2019-02-03] MEDS: IBUPROFEN 600 MG TAB PO PRN ×3 (07:49→18:00)
[2019-02-03] MEDS: OXYCODONE/ACETAMINOPHEN 5mg/325mg TAB PO PRN ×3 (07:50→18:00)
[2019-02-03] MEDS: SIMETHICONE 80 MG CHEW PO SCH ×4 (08:51→20:14)
[2019-02-03] MEDS: PRENATAL VITAMIN 1 TAB PO SCH (08:51)
[2019-02-03] MEDS: DOCUSATE SODIUM 100 MG CAP PO SCH ×2 (08:51→20:15)
[2019-02-03] MEDS: FERROUS SULFATE 325 MG TAB PO SCH (08:51)
--- NOTE | 2019-02-03 09:15 | Surgery Progress Note ---
Date of Service February 03, 2019 Subjective doing fine passing gas no BM tolerating diet Physical Exam Constitutional: WD/WN, vitals as above comfortable Gastrointestinal (Abdomen): Percussion/Palpation: abdomen soft fundus firm incision clean/dry/intact no leg edema neg Tevin's will increase activity and diet Results & Data Vital Signs (Past 12 Hours) Vital Signs Temp Pulse Resp BP Pulse Ox 02/03/19 07:09 36.7 C 83 18 101/67 96 02/03/19 04:10 36.6 C 88 18 102/66 98 02/03/19 03:20 18 98 02/03/19 02:05 18 98 02/03/19 01:35 18 95 02/03/19 00:20 18 96 02/02/19 23:25 36.7 C 82 18 97/63 L 98 02/02/19 22:15 18 98 02/02/19 21:25 18 97
[2019-02-03] MEDS ORDERED: FLUCONAZOLE 50 MG TAB PO ONE (19:45)
[2019-02-03] MEDS ORDERED: BISACODYL 5 MG TABEC PO SCH (20:00)
[2019-02-04] MEDS: IBUPROFEN 600 MG TAB PO PRN ×4 (01:02→17:31)
[2019-02-04] MEDS: OXYCODONE/ACETAMINOPHEN 5mg/325mg TAB PO PRN ×4 (01:03→17:31)
[2019-02-04 07:19] LABS: Hematocrit (blood only) 28.2 % (37-47); Hemoglobin 9.8 g/dL (12.0-16.0)
[2019-02-04] MEDS: FERROUS SULFATE 325 MG TAB PO SCH (08:50)
[2019-02-04] MEDS: PRENATAL VITAMIN 1 TAB PO SCH (08:50)
[2019-02-04] MEDS: SIMETHICONE 80 MG CHEW PO SCH ×3 (08:54→17:32)
[2019-02-04] MEDS: DOCUSATE SODIUM 100 MG CAP PO SCH (08:56)
--- NOTE | 2019-02-04 09:12 | Surgery Progress Note ---
Date of Service February 04, 2019 Subjective doing well no pain passing gas tolerating diet Physical Exam Constitutional: WD/WN, vitals as above comfortable Musculoskeletal: abdomen soft non-tender fundus firm incision clean dry intact for tent d/c in AM Results & Data Vital Signs (Past 12 Hours) Vital Signs Temp Pulse Resp BP 02/04/19 01:05 36.5 C 70 18 110/77
[2019-02-04] MEDS ORDERED: BISACODYL 10 MG SUPP PR PRN (09:13)
--- NOTE | 2019-02-04 11:08 | Obstetrical Progress Note ---
Date of Service February 04, 2019 Subjective Patient is seen and examined. She feels well, no complaints. Likes to be discharged today. Pain is under control with oral meds. Ambulating without dizziness Voiding without difficulty Tolerating regular diet with out N&V Flatus + BM + Bleeding is minimal No fever/ chills/ CP/ SOB/ N&V/ Leg pain Breast feeding without problems Vital Signs Temp Pulse Resp BP 02/04/19 01:05 36.5 C 70 18 110/77 Vital Signs Temp Pulse Resp BP Pulse Ox 02/04/19 01:05 36.5 C 70 18 110/77 02/03/19 19:45 37 C 87 18 112/74 02/03/19 15:30 36.4 C L 96 H 18 110/71 98 02/03/19 12:30 36.8 C 103 H 18 113/76 02/04/19 Range/Units 06:46 Hgb 9.8 L (12.0-16.0) g/dL Hct 28.2 L (37-47) % PE: General: Alert, orientedx3, NAD CVS: S1S2 RRR Lungs; CTAB Abd: soft, NT, ND, BS+, fundus firm, below Umbilicus Incision: Clean, dry, intact Perineum intact, Lochia rubra minimal Ext; NT, no edema AP: 33 yo s/p C Section, pod# 2 VSS Afebrile doing well Continue routine postop care Encourage ambulation, PO intake All questions were answered Instructions were given when to call D/C home , f/u in office on 02/09 Results & Data Vital Signs (Past 12 Hours) Vital Signs Temp Pulse Resp BP 02/04/19 01:05 36.5 C 70 18 110/77
--- NOTE | 2019-02-16 13:40 | Discharge Summary ---
She was admitted at an intrauterine term for repeat section, desired for permanent sterilization. She is a 33-year-old 3, at this time of discharge para 3. The day of admission, she was given prophylactic antibiotics, taken to the room where she underwent repeat low segment section along with bilateral partial salpingectomy. Postoperatively, she did well. Her bowel sounds returned within 24 hours. She was afebrile. Her preoperative hemoglobin was 12. Postoperatively, it was 9.8. At the time of discharge, she was ambulating well, eating well. She had a prescription for Percocet and Motrin for pain control. She was told to call the office for removal of hu and for 6 week checkup. Postoperative course was uneventful.
== END 2019-02-04 17:55 | disposition home or self-care (01) | DRG 785 ==
LOC: 4S1 05:40 → EDSTATUS 07:30 → 4S2 12:25